=== PATIENT | female | born 1935 | race Caucasian/White ===

== ENCOUNTER 2017-12-11 18:18 | Observation (INO) | payer MEDICARE, OTHER, SELFPAY ==
[2017-12-11] VITALS (7 sets, daily range): BP systolic 120–148; BP diastolic 78–110; PULSE 67–80; RESP 11–16; TEMP 36.4; O2SAT 93–99; BMI 25.0
--- NOTE | 2017-12-11 19:00 | DI.CT.S_ITS ---
PROCEDURE: CT HEAD/BRAIN WO CON INDICATIONS: stroke TECHNIQUE: Noncontrast 4.5 mm thick angled axial sections acquired from the foramen magnum to the vertex, with coronal and sagittal reformats. For radiation dose reduction, the following was used: automated exposure control, adjustment of mA and/or kV according to patient size. COMPARISON: None. FINDINGS: Image quality: Excellent. CSF spaces: Basal cisterns are patent. No extra-axial fluid collections. The ventricles are symmetric in size and shape. Brain: No intracranial bleeds. There is cerebral volume loss for age, with resultant ventricular and sulcal prominence. There are periventricular and deep white matter chronic small vessel ischemic changes. There is intracranial internal carotid artery atherosclerosis. The pituitary gland is markedly enlarged. Measures approximately 16 mm in transverse dimension. Skull and face: Calvarium and visualized facial bones appear intact, without suspicious lesions. Sinuses: Visualized sinuses and mastoids are clear. IMPRESSION: 1. No acute intracranial process. 2. Moderate atrophy and chronic microvascular ischemic changes. 3. Markedly enlarged pituitary gland as above. This could represent a macroadenoma. No priors are available for comparison. MRI with pituitary protocol is recommended for further evaluation on a nonemergent basis. Dictated by: Alise Griffin M.D. on 12/11/2017 at 19:33 Approved by: Alise Griffin M.D. on 12/11/2017 at 19:36
[2017-12-11 19:40] LABS: Blood Urea Nitrogen 20 mg/dL (7-17); Calcium 9.5 mg/dL (8.4-10.2); Carbon Dioxide 33 mmol/L (22-32); Chloride 92 mmol/L (98-107); Estimated Glomerular Filt Rate 53.3 mL/min (>60); Glucose 100 mg/dL (80-110); HEMOLYSIS < 15 (0-50); Potassium 3.2 mmol/L (3.4-5.1); Sodium 138 mmol/L (137-145)
--- NOTE | 2017-12-11 19:43 | ED_ITS ---
HPI - Neuro Symptoms/Deficit General Chief Complaint: Neuro Symptoms/Deficit Stated Complaint: double vision, headache. Time Seen by Provider: 12/11/17 19:00 Source: patient and family Mode of arrival: ambulatory Limitations: no limitations History of Present Illness HPI Narrative: Patient with history of migraines presents to the emergency department with a chief complaint of left eye double vision and left-sided headache since waking up this morning. She denies any other neurologic symptoms such as numbness, tingling or weakness. She denies any head injury, the use of blood thinners, or recent illness with fever or chills. A family friend mentions that she was slurring her words 2 days ago but that has since resolved. She has a longstanding history of migraines, but has not had 1 since 1988. She states her migraines presented in a very similar fashion. She used to take Fiorinal but they were dated 1988. Onset (ago): hour(s) Timing confirmed by: family member Location: other History of same: Yes Severity: mild Relieving factors: none Exacerbating factors: none On Anticoagulants: No Associated symptoms: headaches Treatments Prior to Arrival: none Related Data Home Medications Medication Instructions Recorded Confirmed aspirin 81 mg PO BEDTIME 12/11/17 12/11/17 Allergies Allergy/AdvReac Type Severity Reaction Status Date / Time Penicillins [PENICILLINS] Allergy Unknown Verified 12/11/17 18:19 Review of Systems Review of Systems All systems reviewed & are unremarkable except as noted in HPI and below Constitutional Denies chills, Denies fever(s), Reports headache(s), Denies lethargy and Denies weakness Eyes Denies change in vision, Denies eye discharge, Denies irritation and Reports loss of vision ENT Ears, Nose, Mouth, and Throat: Denies change in voice, Reports headache(s), Denies neck pain and Denies sore throat Cardiovascular Denies chest pain, Denies irregular heart rhythm, Denies lightheadedness, Denies palpitations, Denies dyspnea, Denies dyspnea on exertion and Denies orthopnea Respiratory Denies cough, Denies dyspnea, Denies dyspnea on exertion and Denies wheezing Gastrointestinal Gastrointestinal: Denies abdominal pain, Denies change in bowel habits, Denies diarrhea, Denies nausea and Denies vomiting Genitourinary Denies hematuria, Denies flank pain, Denies urinary incontinence and Denies urinary urgency Musculoskeletal Denies neck pain Integumentary/Breasts Denies pruritus, Denies erythema, Denies rash and Denies wounds Neurologic Denies confusion, Reports headache(s), Reports loss of vision, Reports other visual disturbances and Denies weakness Psychiatric Denies anxiety, Denies confusion, Denies depression, Denies homicidal ideation and Denies suicidal ideation Endocrine Denies palpitations Hematologic/Lymphatic Denies easy bruising Allergic/Immunologic Denies wheezing PFSH Medical History Malignant melanoma of skin of nose (Acute) Hypertension (Acute) Surgical History History of appendectomy (Acute) Social History household members: spouse Smoking Status: Never smoker alcohol intake: never Exam Narrative Exam Narrative: Pleasant 82-year-old female, squinting her left eye, clutching the left side of her head, obviously uncomfortable. Initial Vital Signs Initial Vital Signs: Vital Signs Temperature 97.5 F L 12/11/17 18:19 Pulse Rate 80 12/11/17 18:19 Respiratory Rate 16 12/11/17 18:19 Blood Pressure 148/105 H 12/11/17 18:19 Pulse Oximetry 96 12/11/17 18:19 Const General: cooperative and well developed Nutritional Appearance: well nourished Orientation: alert, awake, oriented x3 and not confused [facility] Head: normocephalic and atraumatic Ears: external ears normal and TM's normal bilaterally Nose: external nose normal and No nasal discharge Face and sinus: sinuses nontender, face symmetric, no sinus tenderness and No dry mucous membranes Mouth: oral mucosae normal and moist mucous membranes Teeth and gingiva: dentition normal Throat: tonsils normal and uvula midline Eyes General: appearance normal, both eyes and all related structures Eyelids: eyelids normal Conjunctivae: conjunctivae normal Sclera: sclerae normal Pupils: PERRL EOM: EOM intact bilaterally Neck Neck: normal visual inspection, trachea midline, No lymphadenopathy, No midline deformity and No JVD Lymphatic: No lymphedema Resp Effort & Inspection: normal respiratory effort, able to speak in complete sentences, no respiratory distress and no use of accessory muscles Auscultation: clear to auscultation bilaterally, no rales, no rhonchi and no wheezes GI Inspection: non-distended Palpation: soft, no hepatosplenomegaly, No guarding, No pulsatile mass and No tender Auscultation: normal bowel sounds Back/Spine/Pelvis Back: No CVA tenderness Cervical Spine: cervical ROM normal and No pain with cervical ROM Thoracic/Lumbar Spine: thoracic and lumbar spine normal to inspection Skin General: no rashes or lesions noted, No jaundice and No petechiae Neuro General: alert, oriented x3, gait normal and no focal motor deficits Speech: speech normal Motor: muscle tone normal throughout Sensory Exam: no sensory deficits noted Extrem General: full ROM, no clubbing, cyanosis or edema, no pedal edema and no calf tenderness Psych Appearance: well kempt Mental Status: mental status grossly normal Attitude: cooperative Thought Content: normal and suicidality Judgment: judgment good Scores NIH Stroke Scale Level of Conciousness: Alert, keenly responsive Ask month/age: Answers both questions correctly. Open/close eyes, close hand: Performs both tasks correctly Best gaze horizontal: Normal Visual sarmiento: No visual loss Facial palsy: Normal symetrical movement Left arm drift: No drift for full 10 sec Right arm drift: No drift for full 10 sec Left leg drift: No drift for full 10 sec Right leg drift: No drift for full 10 sec Limb ataxia: Absent Sensory on face/arms/legs: Normal, no sensory loss Best language: No aphasia, normal Dysarthria: Normal Extinction or inattention: No abnormality Total NIH Stroke scale score: 0 Course Orders Ordered: ED Orders 12/11/17 18:45 Basic Metabolic Panel Stat 12/11/17 19:00 CT head/brain wo con Stat Urine Drug Screen, Rapid Stat 12/11/17 19:37 Complete Blood Count AUTO DIFF Stat Partial Thromboplastin Time Stat Prothrombin Time INR Stat 12/12/17 02:30 MR stroke Stat Aspirin (Aspirin Ec) 325 mg PO DAILY SELENA Sodium Chloride (Normal Saline 0.9%) 1,000 mls @ 80 mls/hr IV CONT SELENA Ondansetron HCl (Zofran) 4 mg IV Q4HR PRN PRN Reason: Nausea And Vomiting Discontinued Medications Aspirin (Aspirin Chew) 324 mg PO NOW ONE Stop: 12/12/17 00:08 Last Admin: 12/12/17 00:11 Dose: 324 mg Dexamethasone (Decadron) 10 mg IV NOW ONE Stop: 12/11/17 20:20 Last Admin: 12/11/17 20:27 Dose: 10 mg Sodium Chloride (Normal Saline 0.9%) 1,000 mls @ 150 mls/hr IV CONT SELENA Last Infusion: 12/11/17 22:06 Dose: 0 mls/hr Infusion: 12/11/17 20:36 Dose: 1,000 mls/hr Admin: 12/11/17 20:26 Dose: 150 mls/hr Ketorolac Tromethamine (Toradol) 15 mg IV NOW ONE Stop: 12/11/17 20:20 Last Admin: 12/11/17 20:26 Dose: 15 mg Metoclopramide HCl (Reglan) 10 mg IV NOW ONE Stop: 12/11/17 20:20 Last Admin: 12/11/17 20:26 Dose: 10 mg Reevaluation(s) Reevaluation #1: Patient left-sided head pain greatly improved after above- stated therapies but neurologic exam still notes double vision Consultations Consultation #1: Called to [facility] stroke neurologist and related findings consisting of slurred speech a few days ago as well as persistent 2 eyedouble vision with images stacked upon 1 another. EEG is a strong recommendation to admit with further imaging such as stroke MRI and echocardiogram Consultation #2: Dr. Ronquillo is happy to accept this patient onto his service Vital Signs - 8 hr 12/11/17 19:50 12/11/17 20:53 12/11/17 22:03 Temperature Pulse Rate 75 67 72 Respiratory Rate 14 16 14 Blood Pressure Blood Pressure [Right Arm] 123/88 H 120/78 133/93 H Pulse Oximetry 93 96 94 12/11/17 23:27 12/12/17 00:33 12/12/17 01:40 Temperature 96.5 F L Pulse Rate 75 75 76 Respiratory Rate 11 L 14 16 Blood Pressure 132/91 H 147/99 H Blood Pressure [Right Arm] 129/86 H Pulse Oximetry 93 93 95 MDM - Neuro Symptoms/Deficit Lab Data Result diagrams: 12/11/17 19:37 12/11/17 18:45 Lab Results 12/11/17 12/11/17 12/11/17 Range/Units 18:45 19:37 19:37 WBC 7.6 (4.5-11.0) X10^3/uL RBC 4.79 (4.0-5.2) X10^6/uL Hgb 15.1 (12.0-16.0) g/dL Hct 44.1 (36-46) % MCV 92.0 (80-100) fL MCH 31.6 (26-34) PG MCHC 34.3 (30-36) % RDW 13.6 (11.6-14.8) % Plt Count 217 (150-400) X10^3/uL Neut % (Auto) 70.8 (50-75) % Lymph % (Auto) 17.2 L (25-40) % Mclean % (Auto) 9.4 (3-14) % Eos % (Auto) 1.6 L (2-4) % Baso % (Auto) 1.0 (0-2) % Neut # (Auto) 5300 (0561-2292) /uL PT 11.9 (10.1-12.7) SECONDS INR 1.1 (0.9-1.3) APTT 32 (26.4-36.2) SECONDS Sodium 138 (137-145) mmol/L Potassium 3.2 L (3.4-5.1) mmol/L Chloride 92 L (98-107) mmol/L Carbon Dioxide 33 H (22-32) mmol/L BUN 20 H (7-17) mg/dL Creatinine 1.00 (0.52-1.04) mg/dL Estimated GFR 53.3 L (>60) mL/min BUN/Creatinine Ratio 20.0 (6-22) Glucose 100 (80-110) mg/dL Calcium 9.5 (8.4-10.2) mg/dL Imaging Data CT scan - head: Radiologist's impression: PROCEDURE: CT HEAD/BRAIN WO CON INDICATIONS: stroke TECHNIQUE: Noncontrast 4.5 mm thick angled axial sections acquired from the foramen magnum to the vertex, with coronal and sagittal reformats. For radiation dose reduction, the following was used: automated exposure control, adjustment of mA and/or kV according to patient size. COMPARISON: None. FINDINGS: Image quality: Excellent. CSF spaces: Basal cisterns are patent. No extra-axial fluid collections. The ventricles are symmetric in size and shape. Brain: No intracranial bleeds. There is cerebral volume loss for age, with resultant ventricular and sulcal prominence. There are periventricular and deep white matter chronic small vessel ischemic changes. There is intracranial internal carotid artery atherosclerosis. The pituitary gland is markedly enlarged. Measures approximately 16 mm in transverse dimension. Skull and face: Calvarium and visualized facial bones appear intact, without suspicious lesions. Sinuses: Visualized sinuses and mastoids are clear. IMPRESSION: 1. No acute intracranial process. 2. Moderate atrophy and chronic microvascular ischemic changes. 3. Markedly enlarged pituitary gland as above. This could represent a macroadenoma. No priors are available for comparison. MRI with pituitary protocol is recommended for further evaluation on a nonemergent basis. Dictated by: Alise Griffin M.D. on 12/11/2017 at 19:33 Approved by: Alise Griffin M.D. on 12/11/2017 at 19:36 Discharge Plan Departure Patient Disposition: Admitted as Observation Clinical Impression: Cerebrovascular accident Discharge Date/Time: 12/12/17 01:36 Interventions: ED Discharge Assessment Last Done: 12/12/17 00:33 Admit Date/Time: 12/12/17 00:26 Admit Provider: Zen Ronquillo
[2017-12-11 19:51] LABS: INR 1.1 (0.9-1.3); Prothrombin Time 11.9 SECONDS (10.1-12.7)
[2017-12-11 19:53] LABS: PTT Partial Thromboplastin Tim 32 SECONDS (26.4-36.2)
[2017-12-11] MEDS: METOCLOPRAMIDE 10 MG/2 ML INJ IV (20:26)
[2017-12-11] MEDS: SODIUM CHLORIDE 0.9% 1,000 ML 150 ML IV (20:26)
[2017-12-11] MEDS: KETOROLAC 60 MG/2 ML VIAL 15 MG IV (20:26)
[2017-12-11] MEDS: DEXAMETHASONE 10 MG/ML VIAL IV (20:27)
[2017-12-11 20:56] LABS: Add Manual Diff / Slide Review NO; Eosinophils Percent Auto 1.6 % (2-4); Hematocrit 44.1 % (36-46); Hemoglobin 15.1 g/dL (12.0-16.0); Lymphocytes Percent Auto 17.2 % (25-40); Mean Corpuscular HGB Conc 34.3 % (30-36); Mean Corpuscular Hemoglobin 31.6 PG (26-34); Monocytes Percent Auto 9.4 % (3-14); Neutrophils Absolute Auto 5300 /uL (3000-5900); Neutrophils Percent Auto 70.8 % (50-75); Platelet Count 217 X10^3/uL (150-400); Red Blood Cell Count 4.79 X10^6/uL (4.0-5.2); Red Cell Distribution Width 13.6 % (11.6-14.8); White Blood Cell Count 7.6 X10^3/uL (4.5-11.0)
[2017-12-12] MEDS: ASPIRIN 81 MG TAB 324 MG PO (00:11)
[2017-12-12 00:33] VITALS: BP 132/91; PULSE 75; RESP 14; O2SAT 93
[2017-12-12 01:40] VITALS: BP 147/99; PULSE 76; RESP 16; TEMP 35.8; O2SAT 95
[2017-12-12 01:51] VITALS: BMI 25.0
[2017-12-12] MEDS: SODIUM CHLORIDE 0.9% 1,000 ML 80 ML IV (02:30)
--- NOTE | 2017-12-12 02:30 | DI.MRI.S_ITS ---
PROCEDURE: MR STROKE Pre- and post-contrast brain MRI, non-contrast brain MR angiogram, pre- and postcontrast neck MR angiogram INDICATIONS: stroke symptoms, garbled speech, double vision TECHNIQUE: Brain: Noncontrast axial T1 spin echo, axial T2 fast spin echo, sagittal and axial FLAIR, coronal T2 fast spin echo, axial gradient echo, axial diffusion and ADC through the brain. After the administration of contrast, axial 3D VIBE of the cranial vasculature and brain. Brain MRA: Non-contrast 3-D time of flight MR angiogram, with multiple bbbczzj-iowtfwvzh-aisjdgfwjy (MIP) reformats performed. Neck MRA: Axial and sagittal TruFISP through the neck. Coronal dynamic MR angiogram during administration of contrast in the arterial and venous phases, with 3-dimenstional hlryzuw-wwnzgmuxo-skurkpavpi (MIP) reformats constructed from subtraction images. COMPARISON: [facility], CT, CT HEAD/BRAIN WO CON, 12/11/2017, 19:00. FINDINGS: Image quality: Excellent. BRAIN: CSF spaces: Ventricles are normal in size and shape. Basal cisterns are patent. No extra-axial fluid collections. Brain: There is a suprasellar mass measuring 1.4 cm AP x 1.4 cm transverse x 1.8 cm cephalocaudal. No intracranial bleeds or mass effects. Mild cerebral volume loss. Moderate periventricular white matter chronic small vessel ischemic changes are present. Coppola-white matter interface is normal. Diffusion weighted images show no acute ischemic insults. Brainstem appears normal. Normal intravascular flow voids are present. No abnormal intracranial enhancement. Skull and face: Calvarial marrow signal is normal. Orbits appear normal. Sinuses: Mild right frontal sinus mucosal thickening and increased enhancement. and mastoids are clear. BRAIN MR ANGIOGRAM: Anterior circulation: Intracranial internal carotid arteries are normal in size and enhancement. The flow within the paired anterior cerebral arteries is normal and symmetric. The flow within the middle cerebral arteries is normal and symmetric. The anterior communicating artery is seen. No stenoses, occlusions, or aneurysms. Posterior circulation: The visualized portions of the vertebral arteries demonstrate normal caliber, and join to form a normal appearing basilar artery. The flow within the posterior cerebral arteries is normal and symmetric. No stenoses, occlusions, or aneurysms. NECK MR ANGIOGRAM: Carotids: Great vessels demonstrate a conventional anatomy as they arise from the aortic arch. The origins of the common carotid arteries appear patent. The calibers and courses of both common carotid arteries are normal. The bifurcation regions appear normal bilaterally. The internal carotid arteries demonstrate normal course and caliber. Posterior circulation: The origins of the vertebral arteries appear patent. More superior portions of both vertebral arteries demonstrate normal course and caliber, and join to form a normal appearing basilar artery. Miscellaneous: Subclavian arteries appear patent. Pre-contrast images through the neck show no soft tissue abnormalities. IMPRESSION: BRAIN MRI: 1. No acute intracranial abnormalities. 2. Cerebral volume loss and chronic microvascular ischemic changes. 3. A 1.4 x 1.4 x 1.8 cm suprasellar mass. Differential diagnosis include a pituitary macroadenoma, meningioma and metastasis. 4. Mild right frontal sinusitis. BRAIN MR ANGIOGRAM: 1. No high-grade stenosis or occlusion in anterior circulation. 2. No high-grade stenosis or occlusion in posterior circulation. NECK MR ANGIOGRAM: 1. Normal carotid arteries bilaterally. 2. Normal vertebral arteries bilaterally. Dictated by: Hermilo Cabello M.D. on 12/12/2017 at 13:00 Approved by: Hermilo Cabello M.D. on 12/12/2017 at 13:11
[2017-12-12 05:43] VITALS: BP 139/96; PULSE 76; RESP 16; TEMP 35.9; O2SAT 94
[2017-12-12 07:10] VITALS: BP 141/95; PULSE 70; RESP 16; TEMP 36.4; O2SAT 95
[2017-12-12 07:48] LABS: Urine Cocaine Negative (Negative); Urine Tetrahydrocannabinol Negative (Negative)
[2017-12-12 07:49] LABS: Urine Amphetamines Negative (Negative); Urine Barbiturates Negative (Negative); Urine Benzodiazepines Negative (Negative); Urine MDMA Negative (Negative); Urine Methadone Negative (Negative); Urine Methamphetamines Negative (Negative); Urine Morphine/Opi cutoff 2000 Positive (Negative); Urine Oxycodone Positive (Negative); Urine Phencyclidine Negative (Negative); Urine Tricyclic Antidepressant Negative (Negative)
[2017-12-12] MEDS: ASPIRIN EC 325 MG TABLET PO (08:21)
[2017-12-12 13:00] VITALS: BP 118/82; PULSE 97; RESP 16; TEMP 36.4; O2SAT 92
--- NOTE | 2017-12-12 14:08 | PM.HP.1 ---
History of Present Illness Date Patient Seen: 12/12/17 Time Patient Seen: 14:08 Chief complaint: double vision, headache. Narrative: 82-year-old female presents with 1 day history of headaches and diplopia. She says the diplopia only bothers her at a distance and does not have it up close no matter which direction she looks. She has been relatively healthy has a history of hypertension. No other symptoms noted. CT scan done in the ER was unremarkable. Over night she has had no neurologic symptoms and this morning MRI was done that showed a pituitary mass Patient History Medical History Malignant melanoma of skin of nose (Acute) Hypertension (Acute) Surgical History History of appendectomy (Acute) Family & Social History Social History: household members spouse Prior Living Arrangements House Safety & Behavioral: Feels Safe in Current Yes Environment Been Physically Hurt or No Threatened By a Person Suicidal Ideation Description None Suicide Plan Description No Plan Tobacco & Substance use: Smoking Status Never smoker alcohol intake never Substance Use Type does not use Meds Home Medications Medication Instructions Recorded Confirmed Type aspirin 81 mg PO BEDTIME 12/11/17 12/11/17 History Allergies Allergy/AdvReac Type Severity Reaction Status Date / Time Penicillins [PENICILLINS] Allergy Unknown Verified 12/11/17 18:19 Review of Systems Review of Systems All systems reviewed & are unremarkable except as noted in HPI and below Exam Vital Signs (past 8 hours): - 12/12/17 07:10 Temperature 97.6 F Pulse Rate 70 Respiratory Rate 16 Blood Pressure 141/95 H Pulse Oximetry 95 Oxygen Delivery Method Room Air Narrative Exam Narrative: Pleasant female no acute distress oropharynx clear Neck is supple Lungs are clear Heart regular rhythm Abdomen soft nontender Neuro exam awake alert oriented speech normal extra ocular muscles are intact no diplopia on testing and peripheral vision appears normal also. No focal motor or sensory deficits Objective Labs Result Diagrams: 12/11/17 19:37 12/11/17 18:45 Labs: Laboratory Results - last 24 hr 12/11/17 12/11/17 12/11/17 18:45 19:37 19:37 WBC 7.6 RBC 4.79 Hgb 15.1 Hct 44.1 MCV 92.0 MCH 31.6 MCHC 34.3 RDW 13.6 Plt Count 217 Neut % (Auto) 70.8 Lymph % (Auto) 17.2 L [place] % (Auto) 9.4 Eos % (Auto) 1.6 L Baso % (Auto) 1.0 Neut # (Auto) 5300 PT 11.9 INR 1.1 APTT 32 Sodium 138 Potassium 3.2 L Chloride 92 L Carbon Dioxide 33 H BUN 20 H Creatinine 1.00 Estimated GFR 53.3 L BUN/Creatinine Ratio 20.0 Glucose 100 Calcium 9.5 Urine Opiates Screen Ur Oxycodone Screen Urine Methadone Screen Ur Barbiturates Screen U Tricyclic Antidepress Ur Phencyclidine Scrn Ur Amphetamines Screen U Methamphetamines Scrn Ur MDMA Scrn (Ecstasy) U Benzodiazepines Scrn Urine Cocaine Screen U Marijuana (THC) Screen 12/12/17 07:36 WBC RBC Hgb Hct MCV MCH MCHC RDW Plt Count Neut % (Auto) Lymph % (Auto) [place] % (Auto) Eos % (Auto) Baso % (Auto) Neut # (Auto) PT INR APTT Sodium Potassium Chloride Carbon Dioxide BUN Creatinine Estimated GFR BUN/Creatinine Ratio Glucose Calcium Urine Opiates Screen Positive H Ur Oxycodone Screen Positive H Urine Methadone Screen Negative Ur Barbiturates Screen Negative U Tricyclic Antidepress Negative Ur Phencyclidine Scrn Negative Ur Amphetamines Screen Negative U Methamphetamines Scrn Negative Ur MDMA Scrn (Ecstasy) Negative U Benzodiazepines Scrn Negative Urine Cocaine Screen Negative U Marijuana (THC) Screen Negative Assessment & Plan Plan: Assessment/Plan Narrative: One. Headache diplopia with suprasellar mass. MRI showing 1.4 x 1.4 x 1.8 cm suprasellar mass differential diagnosis includes pituitary macroadenoma meningioma or metastases. Uncertain whether not her symptoms are coming from this or not. Do not detect any extra ocular muscle deficits and in fact her diplopia is only when she looks at distance. Plan to do a prolactin level and insulin like growth factor level. Plan to refer her as an outpatient to Neurosurgery for the suprasellar mass. Follow up with primary care Dr. De Anda also. Quality VTE Deep Vein Thrombosis/Pulmonary Embolism Present on Admission: No
[2017-12-12] MEDS: POTASSIUM CHLORIDE 20 MEQ TAB PO (14:56)
--- NOTE | 2017-12-12 15:06 | CM.DANOTE ---
DCP: assessment: Case received, EMR reviewed, d/c to home order noted, checked in with ANGELA Cisneros and met with pt. Introduced self and role. Pt is an 82 year old female who admitted early this morning to care of hospitalist team. Payer: Medicare and Commercial Insurance PCP: Dr. Ricci Ronquillo has ok'd pt now for d/c to home. Pt notes she feels well, is eager to go home and will call Dr. De Anda's office to make a followup appt. Family members are gathered in the room ready to take her home as soon as paperwork is completed.
[2017-12-12 15:26] LABS: Prolactin 45.2 ng/mL (3.0-18.6)
== END 2017-12-12 15:20 | disposition home or self-care (01) ==
LOC: ED 12-12 00:11 → AC 12-12 00:27
PROVIDERS: Admitting Provider Internal Medicine; Emergency Provider Emergency Medicine; Visit Provider Internal Medicine
DX: H53.2 Diplopia (principal); R51 Headache; I10 Essential (primary) hypertension; R93.8 Abnormal findings on diagnostic imaging of other specified body structures
CPT/HCPCS: 36415; 36591; 70450; 70553; 80048; 80305; 81003; 84146; 84305; 85025; 85610; 85730; 96361; 96374; 96375; 99285; 99291; G0378; J1100; J1885; J2765

== ENCOUNTER → 2018-02-02 08:12 | Outpatient (CLI) | payer MEDICARE, OTHER, SELFPAY ==
[2018-02-02 08:53] LABS: Blood Urea Nitrogen 16 mg/dL (7-17); Carbon Dioxide 33 mmol/L (22-32); Chloride 101 mmol/L (98-107); Estimated Glomerular Filt Rate 53.3 mL/min (>60); Glucose 106 mg/dL (80-110); HEMOLYSIS < 15 (0-50); Potassium 3.2 mmol/L (3.4-5.1); Sodium 142 mmol/L (137-145)
== END ==
PROVIDERS: Visit Provider Neurological Surgery
DX: B35.2 Tinea manuum (principal)
CPT/HCPCS: 36415; 80048; 82533

== ENCOUNTER → 2018-02-09 08:05 | Outpatient (CLI) | payer MEDICARE, OTHER, SELFPAY ==
[2018-02-09 08:48] LABS: BUN Creatinine Ratio 17.8 (6-22); Blood Urea Nitrogen 16 mg/dL (7-17); Calcium 8.8 mg/dL (8.4-10.2); Carbon Dioxide 35 mmol/L (22-32); Chloride 104 mmol/L (98-107); Estimated Glomerular Filt Rate > 60.0 mL/min (>60); Glucose 93 mg/dL (80-110); HEMOLYSIS 21 (0-50); Potassium 3.2 mmol/L (3.4-5.1); Sodium 147 mmol/L (137-145)
[2018-02-09 09:19] LABS: Cortisol AM (Before 10AM) 10.7 ug/dL (4.46-22.7)
== END ==
PROVIDERS: PCP Internal Medicine; Visit Provider Neurological Surgery
DX: D35.2 Benign neoplasm of pituitary gland (principal)
CPT/HCPCS: 36415; 80048; 82533

== ENCOUNTER → 2018-02-10 16:23 | Outpatient (CLI) | payer MEDICARE, OTHER, SELFPAY ==
[2018-02-10 18:05] LABS: Blood Urea Nitrogen 18 mg/dL (7-17); Calcium 9.2 mg/dL (8.4-10.2); Carbon Dioxide 35 mmol/L (22-32); Chloride 100 mmol/L (98-107); Estimated Glomerular Filt Rate > 60.0 mL/min (>60); Glucose 153 mg/dL (80-110); HEMOLYSIS < 15 (0-50); Potassium 3.4 mmol/L (3.4-5.1); Sodium 144 mmol/L (137-145)
[2018-02-10 18:07] LABS: Creatinine Urine Random 73.6 mg/dL; Sodium Urine Random 9 mmol/L (30-90)
[2018-02-12 17:34] LABS: Osmolality, Serum 300 mosm/kg (260-310)
[2018-02-12 17:35] LABS: Osmolality Urine 358 mosm/kg (220-1300)
== END ==
PROVIDERS: Family Provider Internal Medicine; PCP Neurological Surgery; Visit Provider Internal Medicine
DX: D35.2 Benign neoplasm of pituitary gland (principal); R35.1 Nocturia; E87.0 Hyperosmolality and hypernatremia
CPT/HCPCS: 36415; 80048; 82570; 83930; 83935; 84300

== ENCOUNTER → 2018-04-14 13:44 | Outpatient (CLI) | payer MEDICARE, OTHER, SELFPAY ==
[2018-04-14 16:21] LABS: BUN Creatinine Ratio 21.1 (6-22); Blood Urea Nitrogen 19 mg/dL (7-17); Estimated Glomerular Filt Rate > 60.0 mL/min (>60)
== END ==
PROVIDERS: Family Provider Internal Medicine; PCP Neurological Surgery; Visit Provider Neurological Surgery
DX: D35.2 Benign neoplasm of pituitary gland (principal)
CPT/HCPCS: 36415; 82565; 84520

== ENCOUNTER → 2018-04-21 08:07 | Outpatient (CLI) | payer MEDICARE, OTHER, SELFPAY ==
--- NOTE | 2018-04-21 | DI.MRI.S_ITS ---
PROCEDURE: MR BRAIN (PITUITARY) WWO CON INDICATIONS: Benign neoplasm of pituitary gland TECHNIQUE: Noncontrast sagittal and axial FLAIR, axial gradient echo, axial diffusion and ADC through the brain. Thin-slice sagittal and coronal T1 spin echo, coronal T2 fast spin echo through the pituitary. After the administration contrast, optional dynamic coronal T1 spin echo, thin-slice coronal and sagittal T1 spin echo images through the pituitary fossa; axial T1 spin echo with fat saturation through the brain. COMPARISON: [facility], MR, MR STROKE, 12/12/2017, 11:23. [facility], CT, CT HEAD/BRAIN WO CON, 12/11/2017, 19:00. FINDINGS: Image quality: Diagnostic, with note made of motion artifact. Pituitary Gland: The previously seen pituitary mass has been removed. There is a small amount of residual pituitary tissue seen. On the postcontrast imaging, no masses or abnormally enhancing areas are seen. The pituitary stalk and infundibulum have an unremarkable appearance. A normal appearing pituitary bright spot is seen posteriorly on the precontrast sagittal T1-weighted images. The optic chiasm and the ventral forebrain have an unremarkable appearance. CSF Spaces: Ventricles are normal in size and shape. Basal cisterns are patent. No extra-axial fluid collections. Brain: No intracranial bleeds or mass effects. No abnormal intracranial enhancement. Coppola-white matter interface is intact. Diffusion weighted images demonstrate no acute ischemic insults. Brainstem is normal. Normal intravascular flow voids are present. Skull and face: Calvarial marrow is normal in signal. Orbits appear normal. Sinuses: Sinuses and mastoids are clear. IMPRESSION: Removal of the previously seen pituitary mass. No significant abnormality is seen on the current images. Dictated by: Lc Kevin M.D. on 04/21/2018 at 9:36 Approved by: Lc Kevin M.D. on 04/21/2018 at 9:39
== END ==
PROVIDERS: Family Provider Internal Medicine; PCP Internal Medicine; Visit Provider Neurological Surgery
DX: D35.2 Benign neoplasm of pituitary gland (principal)
CPT/HCPCS: 70553; A9579

== ENCOUNTER → 2018-06-24 08:58 | Outpatient (CLI) | payer MEDICARE, OTHER, SELFPAY ==
[2018-06-24 10:11] LABS: Blood Urea Nitrogen 16 mg/dL (7-17); Calcium 8.9 mg/dL (8.4-10.2); Carbon Dioxide 33 mmol/L (22-32); Chloride 100 mmol/L (98-107); Estimated Glomerular Filt Rate > 60.0 mL/min (>60); Glucose 93 mg/dL (80-110); HEMOLYSIS < 15 (0-50); Sodium 143 mmol/L (137-145)
== END ==
PROVIDERS: Family Provider Internal Medicine; PCP Internal Medicine; Visit Provider Internal Medicine
DX: D35.2 Benign neoplasm of pituitary gland (principal)
CPT/HCPCS: 36415; 80048

== ENCOUNTER → 2018-07-01 08:34 | Outpatient (CLI) | payer MEDICARE, OTHER, SELFPAY ==
[2018-07-01 10:44] LABS: Blood Urea Nitrogen 18 mg/dL (7-17); Calcium 9.3 mg/dL (8.4-10.2); Carbon Dioxide 34 mmol/L (22-32); Chloride 100 mmol/L (98-107); Estimated Glomerular Filt Rate > 60.0 mL/min (>60); Glucose 89 mg/dL (80-110); HEMOLYSIS < 15 (0-50); Potassium 3.6 mmol/L (3.4-5.1); Sodium 142 mmol/L (137-145)
== END ==
PROVIDERS: PCP Internal Medicine; Visit Provider Internal Medicine
DX: E03.8 Other specified hypothyroidism (principal); Z86.39 Personal history of other endocrine, nutritional and metabolic disease; E87.6 Hypokalemia; D35.2 Benign neoplasm of pituitary gland
CPT/HCPCS: 36415; 80048

== ENCOUNTER → 2018-07-13 08:01 | Outpatient (CLI) | payer MEDICARE, OTHER, SELFPAY ==
[2018-07-13 10:01] LABS: Free T4, Direct Thyroxine 1.01 ng/dL (0.78-2.19)
[2018-07-13 10:15] LABS: Cortisol Random 5.65 ug/dL
== END ==
PROVIDERS: Family Provider Internal Medicine; PCP Internal Medicine; Visit Provider Internal Medicine
DX: D35.2 Benign neoplasm of pituitary gland (principal); E03.8 Other specified hypothyroidism; E87.6 Hypokalemia; Z86.39 Personal history of other endocrine, nutritional and metabolic disease
CPT/HCPCS: 36415; 82533; 84439

== ENCOUNTER → 2019-02-18 11:37 | Outpatient (CLI) | payer MEDICARE, OTHER, SELFPAY ==
--- NOTE | 2019-02-18 | DI.MRI.S_ITS ---
PROCEDURE: MR BRAIN (PITUITARY) WWO CON INDICATIONS: PITUITARY MACROADENOMA TECHNIQUE: Noncontrast sagittal and axial FLAIR, axial gradient echo, axial diffusion and ADC through the brain. Thin-slice sagittal and coronal T1 spin echo, coronal T2 fast spin echo through the pituitary. After the administration contrast, optional dynamic coronal T1 spin echo, thin-slice coronal and sagittal T1 spin echo images through the pituitary fossa; axial T1 spin echo with fat saturation through the brain. COMPARISON: [facility], MR, MR STROKE, 12/12/2017, 11:23. [facility], CT, CT HEAD/BRAIN WO CON, 12/11/2017, 19:00. [facility], MR, MR BRAIN (PITUITARY) WWO CON, 04/21/2018, 8:57. FINDINGS: Image quality: Excellent. Pituitary Gland: This patient previously had a large pituitary mass. This mass has been removed. No findings of recurrence can be seen. No abnormal enhancement can be seen. There is a small amount of normal appearing pituitary tissue seen along the anterior aspect of the sella turcica. The pituitary stalk appears intact and is seen just to the right of the midline. CSF Spaces: Ventricles are normal in size and shape. Basal cisterns are patent. No extra-axial fluid collections. Brain: No intracranial bleeds or mass effects. No abnormal intracranial enhancement. Coppola-white matter interface is intact. Brain parenchymal volume loss is seen, which is age-appropriate. Age-appropriate chronic small vessel ischemic change can be seen. Diffusion weighted images demonstrate no acute ischemic insults. Brainstem is normal. Normal intravascular flow voids are present. Skull and face: Calvarial marrow is normal in signal. Orbits appear normal. Sinuses: Sinuses and mastoids are clear. IMPRESSION: No findings pituitary mass recurrence. Note is made of age-appropriate brain parenchymal volume loss and chronic small vessel ischemic changes. Dictated by: Lc Kevin M.D. on 02/18/2019 at 12:07 Approved by: Lc Kevin M.D. on 02/18/2019 at 12:10
== END ==
PROVIDERS: Family Provider Internal Medicine; PCP Internal Medicine; Visit Provider Neurological Surgery
DX: D35.2 Benign neoplasm of pituitary gland (principal)
CPT/HCPCS: 70553

== ENCOUNTER → 2020-02-15 09:07 | Outpatient (CLI) | payer MEDICARE, OTHER, SELFPAY ==
--- NOTE | 2020-02-15 | DI.MRI.S_ITS ---
PROCEDURE: MR BRAIN (PITUITARY) O CON INDICATIONS: Benign neoplasm of pituitary gland TECHNIQUE: Noncontrast sagittal and axial FLAIR, axial gradient echo, axial diffusion and ADC through the brain. Thin-slice sagittal and coronal T1 spin echo, coronal T2 fast spin echo through the pituitary. After the administration contrast, optional dynamic coronal T1 spin echo, thin-slice coronal and sagittal T1 spin echo images through the pituitary fossa; axial T1 spin echo with fat saturation through the brain. COMPARISON: [facility], MR, MR BRAIN (PITUITARY) O CON, 04/21/2018, 8:57. [facility], MR, MR STROKE, 12/12/2017, 11:23. [facility], CT, CT HEAD/BRAIN WO CON, 12/11/2017, 19:00. [facility], MR, MR BRAIN (PITUITARY) O CON, 02/18/2019, 12:09. FINDINGS: Image quality: Excellent. Pituitary Gland: The pituitary gland demonstrates decreased bulk. On the postcontrast imaging, no masses or abnormally enhancing areas are seen. The pituitary stalk and infundibulum have an unremarkable appearance. A normal appearing pituitary bright spot is seen posteriorly on the precontrast sagittal T1-weighted images. The optic chiasm and the ventral forebrain have an unremarkable appearance. CSF Spaces: Ventricles are normal in size and shape. Basal cisterns are patent. No extra-axial fluid collections. Brain: No intracranial bleeds or mass effects. No abnormal intracranial enhancement. Coppola-white matter interface is intact. Brain parenchymal volume loss is seen. Chronic small vessel ischemic change is seen. Diffusion weighted images demonstrate no acute ischemic insults. Brainstem is normal. Normal intravascular flow voids are present. The basilar artery is tortuous. Relatively prominent perivascular spaces are noted. Skull and face: Calvarial marrow is normal in signal. Orbits appear normal. Sinuses: Sinuses and mastoids are clear. IMPRESSION: No recurrent pituitary masses are seen. Note is made of age-appropriate brain parenchymal volume loss and chronic small vessel ischemic changes. Dictated by: Lc Kevin M.D. on 02/15/2020 at 10:14 Approved by: Lc Kevin M.D. on 02/15/2020 at 10:16
== END ==
PROVIDERS: Family Provider Internal Medicine; PCP Internal Medicine; Referring Provider Internal Medicine; Visit Provider Neurological Surgery
DX: D35.2 Benign neoplasm of pituitary gland (principal)
CPT/HCPCS: 70553

== ENCOUNTER → 2020-05-09 12:12 | Outpatient (CLI) | payer MEDICARE, OTHER, SELFPAY ==
[2020-05-09 13:08] LABS: BUN Creatinine Ratio 16.8 (6-22); Blood Urea Nitrogen 17 mg/dL (7-17); Carbon Dioxide 37 mmol/L (22-32); Chloride 99 mmol/L (98-107); Estimated Glomerular Filt Rate 52.5 mL/min (>60); Glucose 104 mg/dL (80-110); HEMOLYSIS < 15 (0-50); Potassium 3.4 mmol/L (3.4-5.1); Sodium 138 mmol/L (137-145)
== END ==
PROVIDERS: Family Provider Internal Medicine; PCP Internal Medicine; Referring Provider Internal Medicine; Visit Provider Internal Medicine
DX: D35.2 Benign neoplasm of pituitary gland (principal); Z98.890 Other specified postprocedural states; Z86.39 Personal history of other endocrine, nutritional and metabolic disease; E87.6 Hypokalemia
CPT/HCPCS: 36415; 80048

== ENCOUNTER → 2020-07-14 09:13 | Outpatient (CLI) | payer MEDICARE, OTHER, SELFPAY ==
[2020-07-14] MEDS: COVID-19 VACC #1, MRNA(MOD) 100 MCG/0.5 ML VIAL IM (09:21)
== END ==
PROVIDERS: Family Provider Internal Medicine; PCP Internal Medicine; Visit Provider Internal Medicine
DX: Z23 Encounter for immunization (principal)
CPT/HCPCS: 0011A; 91301

== ENCOUNTER → 2020-08-11 09:15 | Outpatient (CLI) | payer MEDICARE, OTHER, SELFPAY ==
[2020-08-11] MEDS: COVID-19 VACC #2, MRNA(MOD) 100 MCG/0.5 ML VIAL IM (09:19)
== END ==
PROVIDERS: Family Provider Internal Medicine; PCP Internal Medicine; Visit Provider Internal Medicine
DX: Z23 Encounter for immunization (principal)
CPT/HCPCS: 0012A; 91301

== ENCOUNTER → 2021-02-28 08:41 | Outpatient (CLI) | payer MEDICARE, OTHER, SELFPAY ==
--- NOTE | 2021-02-28 | DI.MRI.S_ITS ---
PROCEDURE: MR BRAIN (PITUITARY) WWO CON INDICATIONS: Benign neoplasm of pituitary gland TECHNIQUE: Noncontrast sagittal and axial FLAIR, axial gradient echo, axial diffusion and ADC through the brain. Thin-slice sagittal and coronal T1 spin echo, coronal T2 fast spin echo through the pituitary. After the administration contrast, optional dynamic coronal T1 spin echo, thin-slice coronal and sagittal T1 spin echo images through the pituitary fossa; axial T1 spin echo with fat saturation through the brain. COMPARISON: [facility], MR, MR STROKE, 12/12/2017, 11:23. [facility], CT, CT HEAD/BRAIN WO CON, 12/11/2017, 19:00. [facility], MR, MR BRAIN (PITUITARY) WWO CON, 04/21/2018, 8:57. [facility], MR, MR BRAIN (PITUITARY) WWO CON, 02/15/2020, 9:30. [facility], MR, MR BRAIN (PITUITARY) WWO CON, 02/18/2019, 12:09. FINDINGS: Image quality: Excellent. Pituitary Gland: Only a small amount of pituitary tissue can be seen along the floor of the sella turcica. On the postcontrast imaging, no masses or abnormally enhancing areas are seen. The pituitary stalk and infundibulum have an unremarkable appearance. A normal appearing pituitary bright spot is seen posteriorly on the precontrast sagittal T1-weighted images. The optic chiasm and the ventral forebrain have an unremarkable appearance. CSF Spaces: Ventricles are normal in size and shape. Basal cisterns are patent. No extra-axial fluid collections. Brain: No intracranial bleeds or mass effects. No abnormal intracranial enhancement. Coppola-white matter interface is intact. Diffusion weighted images demonstrate no acute ischemic insults. Brainstem is normal. Normal intravascular flow voids are present. Note is made of age-appropriate brain parenchymal volume loss and chronic small vessel ischemic changes. Relatively prominent perivascular spaces are noted. Skull and face: Calvarial marrow is normal in signal. Orbits appear normal. Sinuses: Sinuses and mastoids are clear. IMPRESSION: No findings of pituitary mass recurrence can be seen. A small amount of pituitary tissue can be seen along the floor of the sella turcica. No masses or abnormal enhancement can be seen. Note is made of age-appropriate brain parenchymal volume loss and chronic small vessel ischemic changes. Dictated by: Lc Kevin M.D. on 02/28/2021 at 10:16 Approved by: Lc Kevin M.D. on 02/28/2021 at 10:19
== END ==
PROVIDERS: Family Provider Internal Medicine; PCP Internal Medicine; Referring Provider Neurological Surgery; Visit Provider Neurological Surgery
DX: D35.2 Benign neoplasm of pituitary gland (principal)
CPT/HCPCS: 70553

== ENCOUNTER → 2021-03-06 08:00 | Outpatient (CLI) | payer MEDICARE, OTHER, SELFPAY ==
[2021-03-06 09:20] LABS: HEMOLYSIS < 15 (0-50)
[2021-03-06 09:25] LABS: BUN Creatinine Ratio 21.7 (6-22); Blood Urea Nitrogen 20 mg/dL (7-17); Calcium 9.2 mg/dL (8.4-10.2); Carbon Dioxide 38 mmol/L (22-32); Chloride 102 mmol/L (98-107); Estimated Glomerular Filt Rate 58.3 mL/min (>60); Glucose 88 mg/dL (80-110); Potassium 3.5 mmol/L (3.4-5.1); Sodium 141 mmol/L (137-145)
[2021-03-06 09:42] LABS: Free T4, Direct Thyroxine 1.21 ng/dL (0.78-2.19)
[2021-03-06 09:43] LABS: Follicle Stimulating Hormone 10.3 mIU/mL; Luteinizing Hormone 3.09 mIU/mL
[2021-03-06 09:52] LABS: Prolactin 9.4 ng/mL (3.0-18.6)
[2021-03-06 09:56] LABS: Thyroid Stimulating Hormone 5.21 uIU/mL (0.47-4.68)
== END ==
PROVIDERS: Family Provider Internal Medicine; Referring Provider Internal Medicine; Visit Provider Internal Medicine
DX: Z86.39 Personal history of other endocrine, nutritional and metabolic disease (principal); D35.2 Benign neoplasm of pituitary gland; Z98.890 Other specified postprocedural states; E87.6 Hypokalemia
CPT/HCPCS: 36415; 80048; 83001; 83002; 84146; 84439; 84443

== ENCOUNTER → 2022-09-10 08:16 | Outpatient (CLI) | payer MEDICARE, OTHER, SELFPAY ==
--- NOTE | 2022-09-10 | DI.MRI.S_ITS ---
PROCEDURE: MR BRAIN (PITUITARY) O CON INDICATIONS: Benign neoplasm of pituitary gland TECHNIQUE: Noncontrast sagittal and axial FLAIR, axial gradient echo, axial diffusion and ADC through the brain. Thin-slice sagittal and coronal T1 spin echo, coronal T2 fast spin echo through the pituitary. After the administration contrast, optional dynamic coronal T1 spin echo, thin-slice coronal and sagittal T1 spin echo images through the pituitary fossa; axial and coronal and sagittal T1 spin echo with fat saturation through the brain. COMPARISON: [facility], , MR BRAIN (PITUITARY) O CON, 02/15/2020, 9:30. [facility], MR, MR BRAIN (PITUITARY) WWO CON, 02/18/2019, 12:09. [facility], MR, MR BRAIN (PITUITARY) WWO CON, 04/21/2018, 8:57. [facility], MR, MR BRAIN (PITUITARY) WWO CON, 02/28/2021, 9:05. FINDINGS: Image quality: Excellent. Pituitary Gland: Prior trans-sphenoidal resection can be seen. The pituitary gland demonstrates normal signal and bulk. On the postcontrast imaging, no masses or abnormally enhancing areas are seen. There is a small amount residual enhancing pituitary tissue seen along the right floor of the sella turcica. The pituitary stalk and infundibulum have an unremarkable appearance. A normal appearing pituitary bright spot is seen posteriorly on the precontrast sagittal T1-weighted images. The optic chiasm and the ventral forebrain have an unremarkable appearance. CSF Spaces: Ventricles are normal in size and shape. Basal cisterns are patent. No extra-axial fluid collections. Brain: No intracranial bleeds or mass effects. No abnormal intracranial enhancement. Coppola-white matter interface is intact. Diffusion weighted images demonstrate no acute ischemic insults. Brainstem is normal. Normal intravascular flow voids are present. Symmetric calcification can be seen involving the basal ganglia, which is considered to be normal for age. Note is made of age-appropriate brain parenchymal volume loss and chronic small vessel ischemic changes. Skull and face: Calvarial marrow is normal in signal. Orbits appear normal. Sinuses: Sinuses and mastoids are clear. IMPRESSION: Study similar to prior, without a recurrent pituitary mass. Prior trans-sphenoidal resection change can be seen. A stable small amount enhancing pituitary tissue can be seen along the floor of the sella turcica. Dictated by: Lc Kevin M.D. on 09/10/2022 at 9:16 Approved by: Lc Kevin M.D. on 09/10/2022 at 9:19
== END ==
PROVIDERS: PCP Family Medicine; Referring Provider Neurological Surgery; Visit Provider Neurological Surgery
DX: D35.2 Benign neoplasm of pituitary gland (principal)
CPT/HCPCS: 70553; A9579

== ENCOUNTER → 2022-12-05 07:17 | Outpatient (CLI) | payer MEDICARE, OTHER, SELFPAY ==
[2022-12-05 10:00] LABS: BUN Creatinine Ratio 16.8 (6-22); Blood Urea Nitrogen 17 mg/dL (7-17); Calcium 8.7 mg/dL (8.4-10.2); Carbon Dioxide 33 mmol/L (22-32); Chloride 102 mmol/L (98-107); Estimated Glomerular Filt Rate 55 mL/min (>60); Glucose 86 mg/dL (80-110); HEMOLYSIS < 15 (0-50); Potassium 3.3 mmol/L (3.4-5.1); Sodium 142 mmol/L (137-145)
[2022-12-05 10:01] LABS: Follicle Stimulating Hormone 8.38 mIU/mL; Luteinizing Hormone 2.25 mIU/mL
[2022-12-05 10:03] LABS: Prolactin 10.5 ng/mL (3.0-18.6)
[2022-12-05 10:04] LABS: Free T4, Direct Thyroxine 1.18 ng/dL (0.78-2.19)
[2022-12-05 10:17] LABS: Thyroid Stimulating Hormone 4.64 uIU/mL (0.47-4.68)
== END ==
PROVIDERS: PCP Family Medicine; Referring Provider Internal Medicine; Visit Provider Internal Medicine
DX: D35.2 Benign neoplasm of pituitary gland (principal); Z86.39 Personal history of other endocrine, nutritional and metabolic disease
CPT/HCPCS: 36415; 80048; 83001; 83002; 84146; 84439; 84443

== ENCOUNTER → 2023-06-20 07:47 | Outpatient (CLI) | payer MEDICARE, OTHER, SELFPAY ==
[2023-06-20 08:59] LABS: BUN Creatinine Ratio 24.7 (6-22); Blood Urea Nitrogen 22 mg/dL (7-17); Calcium 9.5 mg/dL (8.4-10.2); Carbon Dioxide 34 mmol/L (22-32); Chloride 104 mmol/L (98-107); Estimated Glomerular Filt Rate > 60 mL/min (>60); Glucose 88 mg/dL (80-110); HEMOLYSIS < 15 (0-50); Potassium 3.9 mmol/L (3.4-5.1); Sodium 141 mmol/L (137-145)
[2023-06-20 09:13] LABS: Follicle Stimulating Hormone 8.58 mIU/mL; Free T4, Direct Thyroxine 1.14 ng/dL (0.78-2.19); Luteinizing Hormone 2.78 mIU/mL; Prolactin 11.1 ng/mL (3.0-18.6)
[2023-06-20 09:26] LABS: Cortisol AM (Before 10AM) 11.8 ug/dL (4.46-22.7)
[2023-06-23 16:12] LABS: IGF-1 27 ng/mL (39-177)
== END ==
PROVIDERS: PCP Family Medicine; Referring Provider Internal Medicine; Visit Provider Internal Medicine
DX: D35.2 Benign neoplasm of pituitary gland (principal); E87.6 Hypokalemia; Z86.39 Personal history of other endocrine, nutritional and metabolic disease; Z98.890 Other specified postprocedural states
CPT/HCPCS: 36415; 80048; 82533; 83001; 83002; 84146; 84305; 84439; 84443

== ENCOUNTER → 2024-02-03 07:11 | Outpatient (CLI) | payer MEDICARE, OTHER, SELFPAY ==
[2024-02-03 08:34] LABS: Blood Urea Nitrogen 20 mg/dL (7-17); Calcium 9.4 mg/dL (8.4-10.2); Carbon Dioxide 31 mmol/L (22-32); Chloride 104 mmol/L (98-107); Estimated Glomerular Filt Rate 48 mL/min (>60); Glucose 87 mg/dL (80-110); HEMOLYSIS < 15 (0-50); Potassium 3.9 mmol/L (3.4-5.1); Sodium 140 mmol/L (137-145)
[2024-02-03 08:48] LABS: Follicle Stimulating Hormone 9.42 mIU/mL; Free T4, Direct Thyroxine 1.16 ng/dL (0.78-2.19); Luteinizing Hormone 3.26 mIU/mL
[2024-02-03 08:50] LABS: Prolactin 12.6 ng/mL (3.0-18.6)
[2024-02-03 09:02] LABS: Thyroid Stimulating Hormone 6.77 uIU/mL (0.47-4.68)
[2024-02-03 09:03] LABS: Cortisol AM (Before 10AM) 15.4 ug/dL (4.46-22.7)
[2024-02-04 20:36] LABS: IGF-1 24 ng/mL (34-169)
== END ==
PROVIDERS: PCP Family Medicine; Referring Provider Internal Medicine; Visit Provider Internal Medicine
DX: D35.2 Benign neoplasm of pituitary gland (principal); Z86.39 Personal history of other endocrine, nutritional and metabolic disease; Z98.890 Other specified postprocedural states; E87.6 Hypokalemia
CPT/HCPCS: 36415; 80048; 82533; 83001; 83002; 84146; 84305; 84439; 84443

== ENCOUNTER → 2024-12-27 09:25 | Outpatient (CLI) | payer MEDICARE, OTHER, SELFPAY ==
[2024-12-24 10:01] VITALS: BMI 25.0
== END ==
LOC: WC 09:27
PROVIDERS: Family Provider Family Medicine; PCP Family Medicine; Visit Provider Surgery
DX: K94.09 Other complications of colostomy (principal); L25.9 Unspecified contact dermatitis, unspecified cause; C20 Malignant neoplasm of rectum; Z85.828 Personal history of other malignant neoplasm of skin; I10 Essential (primary) hypertension; N18.30 Chronic kidney disease, stage 3 unspecified; R33.9 Retention of urine, unspecified; D35.2 Benign neoplasm of pituitary gland
CPT/HCPCS: 99203; 99213

== ENCOUNTER → 2024-12-29 11:56 | Outpatient (CLI) | payer MEDICARE, OTHER, SELFPAY ==
[2024-12-24 10:01] VITALS: BMI 25.0
[2024-12-29 13:09] LABS: Appearance Urine UA SL CLOUDY; Bilirubin Urine UA NEGATIVE (NEGATIVE); Color Urine UA YELLOW; Glucose Urine UA NEGATIVE (Negative); Ketones Urine UA NEGATIVE (NEGATIVE); Leukocyte Esterase Urine UA 3+ (NEGATIVE); Nitrite Urine UA POSITIVE (Negative); Occult Blood Urine UA 3+ (Negative); Protein Urine UA 1+ (Negative); Specific Gravity Urine UA <=1.005 (1.000-1.035); Urobilinogen Urine UA 0.2 E.U./dL (0.2)
[2024-12-29 13:10] LABS: pH Urine UA 6.0 (4.5-8.0)
[2024-12-29 13:15] LABS: Culture Indicated Urine Specimen Cultured
[2024-12-29 13:46] LABS: Add Manual Diff / Slide Review NO; Hematocrit 34.0 % (36-46); Hemoglobin 11.4 g/dL (12.0-16.0); Lymphocytes Absolute Auto 600 /uL (1100-4500); Mean Corpuscular HGB Conc 33.4 % (30-36); Mean Corpuscular Hemoglobin 31.3 PG (26-34); Mean Corpuscular Volume 93.8 fL (80-100); Platelet Count 420 X10^3/uL (150-400)
[2024-12-29 13:58] LABS: Blood Urea Nitrogen 17 mg/dL (7-17); Calcium 8.7 mg/dL (8.4-10.2); Carbon Dioxide 27 mmol/L (22-32); Chloride 101 mmol/L (98-107); Estimated Glomerular Filt Rate 50 mL/min (>60); Glucose 142 mg/dL (70-99); HEMOLYSIS < 15 (0-50); Potassium 3.8 mmol/L (3.4-5.1); Sodium 137 mmol/L (137-145)
== END ==
PROVIDERS: Family Medicine; Family Provider Family Medicine; PCP Family Medicine; Referring Provider Physician Assistant; Visit Provider Physician Assistant
DX: K62.5 Hemorrhage of anus and rectum (principal); N18.30 Chronic kidney disease, stage 3 unspecified
CPT/HCPCS: 36415; 80048; 81001; 85025; 87077; 87086; 87186

== ENCOUNTER → 2025-01-05 14:04 | Outpatient (CLI) | payer MEDICARE, OTHER, SELFPAY ==
[2024-12-24 10:01] VITALS: BMI 25.0
== END ==
LOC: WC 14:08
PROVIDERS: Family Provider Family Medicine; PCP Family Medicine; Referring Provider Family Medicine; Visit Provider Surgery
DX: Z43.3 Encounter for attention to colostomy (principal)
CPT/HCPCS: 99212

== ENCOUNTER → 2025-01-06 10:48 | Outpatient (CLI) | payer MEDICARE, OTHER, SELFPAY ==
[2024-12-24 10:01] VITALS: BMI 25.0
== END ==
PROVIDERS: Family Provider Family Medicine; PCP Family Medicine; Referring Provider Family Medicine; Visit Provider Surgery
DX: Z43.3 Encounter for attention to colostomy (principal)
CPT/HCPCS: 99212